=== PATIENT | male | born 1950 | race Caucasian/White ===

== ENCOUNTER 2025-06-18 07:21 | Inpatient (IN) | payer MEDICARE, MEDICAID ==
[~2025-06-18] VITALS: Ht 170.2 cm; Wt 71.7 kg
[2025-06-18 08:04] LABS: HEMATOCRIT. 45.4 % (42.0-52.0); HEMOGLOBIN. 15.2 g/dL (14.0-18.0); MEAN PLATELET VOLUME 9.2 fl (7.4-10.4); PLATELET 166 x1000/uL (130-400); RED BLOOD CELL COUNT 4.80 mill/uL (4.7-6.1); RED CELL DISTRIBUTION WIDTH 12.2 % (11.6-14.6)
[2025-06-18 08:19] LABS: CREATININE 2.1 mg/dL (0.6-1.3)
[2025-06-18 08:20] LABS: UREA NITROGEN BLOOD 17 mg/dL (9-23)
[2025-06-18 08:21] LABS: ASPARTATE AMINOTRANSFERASE 18 IU/L (<34); BILIRUBIN DIRECT 0.1 mg/dL (<=3.0); TROPONIN I HIGH SENSITIVITY 15 ng/L (3.0-53)
[2025-06-18 08:22] LABS: BILIRUBIN TOTAL 0.5 mg/dL (0.1-1.0); PROTEIN TOTAL 7.9 g/dL (6.0-8.3)
[2025-06-18 09:22] LABS: BAND% 6.0 % (1.0-6.0); LYMPHOCYTES % MANUAL 2.0 % (20.0-50.0); MONOCYTES % MANUAL 3.0 % (2.0-8.0); NEUTROPHILS % MANUAL 89.0 % (45.0-75.0); PLATELET ESTIMATE NORMAL
[2025-06-18 10:17] LABS: INR 1.1
[2025-06-18] MEDS ORDERED: VANCOMYCIN 500MG PREMIX 100 ML IV SCH (12:30)
[2025-06-18] MEDS: PIPERACILLIN/TAZO 3.375G/50ML 50 ML IV SCH (12:35)
[2025-06-18] MEDS: VANCOMYCIN 500 MG in DEXT 5% WATER 100 ML IV SCH (13:58)
[2025-06-18] MEDS ORDERED: HYDROCODONE/ACETAMINOPHEN 5/325MG TABLET PO PRN (15:15)
[2025-06-18] MEDS ORDERED: ACETAMINOPHEN 325MG TABLET PO PRN (15:15)
[2025-06-18] MEDS ORDERED: MAGNESIUM/ALUMINUM HYDROXIDE/SIMETHICONE 30ML UDC PO PRN (15:15)
[2025-06-18] MEDS ORDERED: ONDANSETRON HCL 4MG/2ML INJ IV PRN (15:15)
[2025-06-18] MEDS: SODIUM CHLORIDE 0.9% 1,000 ML IV SCH (15:15)
[2025-06-18] MEDS ORDERED: ZOLPIDEM TARTRATE 5MG TABLET PO PRN (15:15)
[2025-06-18] MEDS ORDERED: QUET100T34 PO (15:17)
[2025-06-18] MEDS ORDERED: TAMS-54 PO (15:17)
[2025-06-18] MEDS ORDERED: GABA-1180 PO (15:17)
[2025-06-18] MEDS ORDERED: PANT40TA51 PO (15:17)
[2025-06-18] MEDS ORDERED: DES150 PO (15:17)
[2025-06-18] MEDS ORDERED: LAMO100T16 PO (15:17)
[2025-06-18] MEDS ORDERED: ATOR20TA65 PO (15:17)
[2025-06-18] MEDS ORDERED: NALOXONE HCL 0.4MG/ML VIAL IV PRN (15:30)
[2025-06-18] MEDS: AZITHROMYCIN 500MG/250ML 250 ML IV SCH (16:00)
[2025-06-18] MEDS: METHYLPREDNISOLONE SOD SUCC 40MG/ML (ACT-O-VIAL) IV SCH (16:00)
[2025-06-18 16:20] VITALS: BP 169/79; PULSE 103; RESP 16; TEMP 36.4; O2SAT 95
[2025-06-18] MEDS: GABAPENTIN 300MG CAPSULE PO SCH (17:15)
[2025-06-18] MEDS: CLONIDINE 0.1MG TABLET PO PRN (17:15)
[2025-06-18 18:31] VITALS: BP 169/97; PULSE 82; RESP 16; TEMP 36.5848
[2025-06-18 20:00] VITALS: BP 147/80; PULSE 111; RESP 20; TEMP 36.8; O2SAT 96
[2025-06-18] MEDS ORDERED: CEFTRIAXONE 1GM/50ML 50 ML IV SCH (20:00)
[2025-06-18] MEDS: ATORVASTATIN CALCIUM 20MG TABLET PO SCH (21:50)
[2025-06-18] MEDS: TRAZODONE HCL 50MG TABLET PO SCH (21:50)
[2025-06-18] MEDS: LAMOTRIGINE 100MG TABLET PO SCH (21:51)
[2025-06-18] MEDS: QUETIAPINE FUMARATE 50MG TABLET PO SCH (21:51)
[2025-06-18] MEDS: CEFTRIAXONE 1GM/50ML 50 ML IV SCH (23:07)
[2025-06-19] VITALS (8 sets, daily range): BP systolic 131–162; BP diastolic 73–96; PULSE 90–113; RESP 15–20; TEMP 36.3–36.8; O2SAT 93–100
[2025-06-19] MEDS: ENOXAPARIN 30MG/0.3ML SYR SUBCUT SCH (09:00)
[2025-06-19] MEDS: PANTOPRAZOLE SODIUM 40 MG/VIAL IV SCH (09:09)
[2025-06-19] MEDS: IPRATROPIUM/ALBUTEROL 0.5-3(2.5)MG/3ML NEB HHN SCH (09:11)
[2025-06-19] MEDS: TAMSULOSIN HCL 0.4MG SR CAPSULE PO SCH (09:12)
[2025-06-19] MEDS ORDERED: AZITHROMYCIN 500MG/250ML 250 ML IV SCH (16:00)
[2025-06-19] MEDS: DOXYCYCLINE 100MG/100ML 100 ML IV SCH (17:58)
[2025-06-19] MEDS: PREDNISONE 20MG TABLET PO SCH (20:38)
[2025-06-19] MEDS: AMOXICILLIN/POTASSIUM CLAVULANATE 875/125MG TAB PO SCH (20:38)
[2025-06-19] MEDS ORDERED: AMOXICILLIN/POTASSIUM CLAVULANATE 875/125MG TAB PO ONE (21:00)
[2025-06-20] VITALS (7 sets, daily range): BP systolic 109–141; BP diastolic 73–85; PULSE 89–104; RESP 17–20; TEMP 30.9–36.5; O2SAT 96–98
[2025-06-20] MEDS ORDERED: ALBU18HF2 IH (08:15)
[2025-06-20] MEDS ORDERED: P20 PO (08:15)
[2025-06-20] MEDS ORDERED: AMOX1TAB16 PO (08:15)
[2025-06-20] MEDS ORDERED: MONTELUKAST SODIUM 10MG TABLET PO SCH (17:00)
== END 2025-06-20 16:20 | disposition home health service (06) | DRG 189 ==
LOC: ER 07:34 → 6WST 14:27 → EDBEDREQTM 14:34 → EDBEDREQ 14:34 → 6WST 16:28
PROVIDERS: ADMIT Internal Medicine; ATTEND Internal Medicine
DX: J96.01 Acute respiratory failure with hypoxia (principal); N17.9 Acute kidney failure, unspecified; F84.0 Autistic disorder; N13.30 Unspecified hydronephrosis; J20.9 Acute bronchitis, unspecified; R00.0 Tachycardia, unspecified; N18.9 Chronic kidney disease, unspecified; Z20.822 Contact with and (suspected) exposure to COVID-19; I12.9 Hypertensive chronic kidney disease with stage 1 through stage 4 chronic kidney disease, or unspecified chronic kidney disease; E78.5 Hyperlipidemia, unspecified; F20.9 Schizophrenia, unspecified; N40.0 Benign prostatic hyperplasia without lower urinary tract symptoms; K21.9 Gastro-esophageal reflux disease without esophagitis; E11.22 Type 2 diabetes mellitus with diabetic chronic kidney disease; E11.65 Type 2 diabetes mellitus with hyperglycemia; N28.1 Cyst of kidney, acquired; Z79.899 Other long term (current) drug therapy
CPT/HCPCS: 36415; 71045; 76770; 80048; 80076; 83605; 83735; 83880; 84484; 85025; 85379; 87426; 93005; 93970; 94070; 94640; 94664; 96365; 96367; 98960; 99285; J0456; J0696; J1650; J2470; J2543; J2919; J3373; J3490; J7060; J7512